=== PATIENT | female | born 1970 | race African-American/Black ===

== ENCOUNTER 2018-08-08 22:58 | Inpatient (IN) | payer MEDICAID | END 2018-08-12 14:50 | disposition home or self-care (01) | LOC: TELE-EAST 08-09 16:24 → ER 22:58 → TELE 08-09 04:53 → TELE-EAST 08-09 16:20 | DX: I16.1 Hypertensive emergency (principal); G93.41 Metabolic encephalopathy; I15.8 Other secondary hypertension; F41.1 Generalized anxiety disorder; E87.6 Hypokalemia; E66.9 Obesity, unspecified ==

== ENCOUNTER 2018-12-31 07:25 | Emergency (ER) | payer MEDICAID ==
[~2018-12-31] VITALS: Ht 172.7 cm; Wt 95.3 kg
[~2018-12-31 07:25] MED LIST: HCTZ25T PO; LOSA-49 PO
[2018-12-31] MEDS ORDERED: cloNIDine HCL 0.1 MG TAB ONE (07:39)
[2018-12-31] MEDS ORDERED: cloNIDine HCL 0.1 MG TAB PO ONE ×2 (07:45→16:00)
[2018-12-31 08:01] LABS: Basophils # (auto) 0.1 uL; Basophils % (auto) 0.4 % (0.0-2.0); Eosinophils # (auto) 0 uL; Eosinophils % (auto) 0.1 % (0.0-7.0); Hematocrit 45.8 % (36.0-46.0); Hemoglobin 15.2 g/dL (12.2-16.2); Lymphocytes # (auto) 1.1 uL; Lymphocytes % (auto) 7.8 % (10.0-50.0); Mean Corpuscular Hemoglobin 29.5 pg (28.0-32.0); Mean Corpuscular Hgb Conc. 33.1 g/dL (32.0-36.0); Mean Corpuscular Volume 89.2 fL (80.0-100.0); Monocytes # (auto) 1.2 uL; Monocytes % (auto) 8.5 % (0.0-12.0); Neutrophils # (auto) 11.3 uL; Neutrophils % (auto) 83.2 % (37.0-80.0); Platelet Count (auto) 303 10^3/uL (140-450); Red Blood Cells 5.13 10^6/uL (4.0-5.20); Red Cell Distribution Width 14.3 % (11.8-14.3); White Blood Cell 13.6 10^3/uL (4.4-10.8)
[2018-12-31 08:21] LABS: Albumin 4.1 g/dL (3.4-5.0); BUN/Creatinine Ratio 12.2; Calcium 9.3 mg/dL (8.5-10.1); Potassium 3.6 mmol/L (3.5-5.1)
[2018-12-31 08:26] LABS: Bilirubin, Total 0.4 mg/dL (0.2-1.0); Total Protein 8.6 g/dL (6.4-8.2)
[2018-12-31] MEDS ORDERED: LORazepam 2MG/ML-1ML VIAL ONE (10:01)
[2018-12-31] MEDS ORDERED: LORazepam 2MG/ML-1ML VIAL IV ONE ×2 (10:15→12:45)
[2018-12-31 11:08] LABS: Urine Bacteria NONE SEEN /hpf (None Seen); Urine Blood Negative /uL (Negative); Urine Specific Gravity 1.019 (1.001-1.035); Urine WBC 2 /hpf (0 - 5)
[2018-12-31 11:24] LABS: Alcohol, Urine < 3.0 mg/dL (0-5); Amphetamine Screen, Urine NEGATIVE (NEGATIVE); Barbiturate Scree,Urine NEGATIVE (NEGATIVE); Benzodiazephine Screen, Urine NEGATIVE (NEGATIVE); Cannabinoid Screen, Urine NEGATIVE (NEGATIVE); Cocaine Screen, Urine NEGATIVE (NEGATIVE); Opiate Scree,Urine NEGATIVE (NEGATIVE); Phencyclidine Screen, Urine NEGATIVE (NEGATIVE)
[2018-12-31] MEDS ORDERED: RISP1TAB60 PO (12:08)
[2018-12-31] MEDS ORDERED: METO25TA62 PO (12:08)
[2018-12-31] MEDS ORDERED: risperiDONE 1 MG TAB PO ONE (14:30)
[2018-12-31] MEDS ORDERED: LABETALOL HCL 5 MG/ML ML 20ML VIAL IV ONE (16:00)
[2018-12-31 18:36] VITALS: BP 150/95
== END 2018-12-31 19:28 | disposition home or self-care (01) ==
LOC: EDBD 07:25 → ER 07:42
DX: I16.0 Hypertensive urgency (principal); F20.9 Schizophrenia, unspecified; F41.9 Anxiety disorder, unspecified; F32.9 Major depressive disorder, single episode, unspecified
CPT/HCPCS: 36415; 70450; 71046; 80053; 80307; 81001; 81025; 84484; 84702; 85025; 93005; 96374; 96375; 96376; 99284; J2060

== ENCOUNTER 2021-03-29 10:50 | Emergency (ER) | payer MEDICAID ==
[~2021-03-29] VITALS: Ht 162.6 cm; Wt 86.2 kg
[~2021-03-29 10:50] MED LIST changes: -HCTZ25T PO; +HYDR25TA5 PO; +LOSA-39 PO; -LOSA-49 PO; +METO25TA93 PO; +RISP1TAB33 PO
[2021-03-29] MEDS ORDERED: cloNIDine HCL 0.1 MG TAB ONE (10:53)
[2021-03-29] MEDS ORDERED: cloNIDine HCL 0.1 MG TAB PO ONE (11:00)
[2021-03-29] MEDS ORDERED: InsuLIN REG 1unit/0.01ml Soln (100units/ml) IV ONE (11:45)
[2021-03-29] MEDS ORDERED: SODIUM CHLORIDE 0.9% 1,000 ML IV ONE ×2 (11:45)
[2021-03-29 11:46] LABS: Basophils # (auto) 0 10 ^3/uL (0-0.2); Basophils % (auto) 0.4 % (0.0-2.0); Eosinophils # (auto) 0 10 ^3/uL (0-0.8); Eosinophils % (auto) 0.5 % (0.0-7.0); Hematocrit 39.7 % (36.0-46.0); Hemoglobin 13.7 g/dL (12.2-16.2); Lymphocytes # (auto) 1.9 10 ^3/uL (0.4-5.4); Mean Corpuscular Hemoglobin 29.2 pg (28.0-32.0); Mean Corpuscular Hgb Conc. 34.6 g/dL (32.0-36.0); Mean Corpuscular Volume 84.4 fL (80.0-100.0); Monocytes # (auto) 0.7 10 ^3/uL (0-1.3); Monocytes % (auto) 7.3 % (0.0-12.0); Neutrophils # (auto) 7.3 10 ^3/uL (1.6-8.6); Neutrophils % (auto) 72.8 % (37.0-80.0); Red Cell Distribution Width 13.8 % (11.8-14.3)
[2021-03-29 11:56] LABS: Potassium 3.8 mmol/L (3.5-5.1)
[2021-03-29 12:06] LABS: BUN/Creatinine Ratio 13.3; Bilirubin, Total 0.4 mg/dL (0.2-1.0); Calcium 9.9 mg/dL (8.5-10.1); Total Protein 8.4 g/dL (6.4-8.2)
[2021-03-29 14:32] LABS: Urine Bacteria NONE SEEN /hpf (None Seen); Urine Blood TRACE /uL (Negative); Urine Specific Gravity 1.033 (1.001-1.035); Urine WBC 220 /hpf (0 - 5)
[2021-03-29] MEDS ORDERED: cefTRIAXone 1GM/50ML D5W 50 ML IV ONE (14:45)
[2021-03-29 16:15] VITALS: BP 155/94
== END 2021-03-29 17:28 | disposition left against medical advice (07) ==
LOC: ER 10:50
DX: I16.0 Hypertensive urgency (principal); N39.0 Urinary tract infection, site not specified; E11.65 Type 2 diabetes mellitus with hyperglycemia; Z79.899 Other long term (current) drug therapy
CPT/HCPCS: 36415; 71045; 80053; 81001; 82962; 83036; 85025; 96365; 96375; 99284; J0696; J1815; J7030

== ENCOUNTER 2022-11-10 14:23 | Emergency (ER) | payer MEDICAID ==
[~2022-11-10] VITALS: Ht 162.6 cm; Wt 72.8 kg
[2022-11-10] MEDS ORDERED: cloNIDine HCL 0.1 MG TAB PO ONE (14:45)
[2022-11-10] MEDS ORDERED: LOSARTAN POTASSIUM 50 MG TAB PO ONE (17:00)
[2022-11-10 18:49] VITALS: BP 195/102
== END 2022-11-10 18:54 | disposition home or self-care (01) ==
LOC: ER 14:23
DX: R04.0 Epistaxis (principal); I16.0 Hypertensive urgency; I10 Essential (primary) hypertension; E11.9 Type 2 diabetes mellitus without complications; F41.9 Anxiety disorder, unspecified

== ENCOUNTER 2022-11-11 10:25 | Emergency (ER) | payer MEDICAID ==
[~2022-11-11] VITALS: Ht 162.6 cm; Wt 79.0 kg
[2022-11-11 11:33] VITALS: BP 131/86
== END 2022-11-11 11:39 | disposition home or self-care (01) ==
LOC: ER 10:25
DX: Z48.00 Encounter for change or removal of nonsurgical wound dressing (principal)

== ENCOUNTER 2022-12-21 21:02 | Emergency (ER) | payer MEDICAID ==
[~2022-12-21] VITALS: Ht 162.6 cm; Wt 82.0 kg
[2022-12-22] MEDS ORDERED: [UNRECOGNIZED DRUG - CODE] OT (00:35)
[2022-12-22] MEDS ORDERED: AMOX-277 PO (00:35)
[2022-12-22 00:57] VITALS: BP 156/60
== END 2022-12-22 01:11 | disposition home or self-care (01) ==
LOC: ER 21:04
DX: H02.9 Unspecified disorder of eyelid (principal); H61.23 Impacted cerumen, bilateral; I10 Essential (primary) hypertension; E11.9 Type 2 diabetes mellitus without complications; Z79.2 Long term (current) use of antibiotics; Z79.899 Other long term (current) drug therapy

== ENCOUNTER 2022-12-26 16:04 | Emergency (ER) | payer MEDICAID ==
[~2022-12-26] VITALS: Ht 162.6 cm; Wt 82.1 kg
[~2022-12-26 16:04] MED LIST changes: +AMOX875T4 PO; +CARB6.5S59 OT; -LOSA-39 PO; +LOSA100T58 PO
[2022-12-26 18:31] LABS: Basophils % (auto) 0.4 % (0.0-2.0); Eosinophils # (auto) 0.1 10 ^3/uL (0-0.8); Mean Corpuscular Hemoglobin 26.8 pg (28.0-32.0); Mean Corpuscular Hgb Conc. 32.8 g/dL (32.0-36.0)
[2022-12-26 18:32] LABS: Basophils # (auto) 0 10 ^3/uL (0-0.2); Eosinophils % (auto) 0.8 % (0.0-7.0); Hematocrit 34.8 % (36.0-46.0); Hemoglobin 11.4 g/dL (12.2-16.2); Lymphocytes # (auto) 2.1 10 ^3/uL (0.4-5.4); Lymphocytes % (auto) 17.1 % (10.0-50.0); Mean Corpuscular Volume 81.7 fL (80.0-100.0); Monocytes # (auto) 0.8 10 ^3/uL (0-1.3); Monocytes % (auto) 6.7 % (0.0-12.0); Neutrophils # (auto) 9.1 10 ^3/uL (1.6-8.6); Red Blood Cells 4.26 10^6/uL (4.0-5.20); Red Cell Distribution Width 15.9 % (11.8-14.3); White Blood Cell 12.1 10^3/uL (4.4-10.8)
[2022-12-26 18:47] LABS: Calcium 8.8 mg/dL (8.5-10.1); Potassium 3.7 mmol/L (3.5-5.1)
[2022-12-26 18:50] LABS: BUN/Creatinine Ratio 15.9 (10.0-20.0); Bilirubin, Total 0.2 mg/dL (0.2-1.0); Total Protein 8.4 g/dL (6.4-8.2)
[2022-12-26] MEDS ORDERED: IOHEXOL 300 MG/ML 100ML BOTTLE IJ ONE (19:33)
[2022-12-26] MEDS ORDERED: DexAMETHasone SOD PHOS 10MG/1ML VIAL INJ IM ONE (20:45)
[2022-12-26] MEDS ORDERED: cefTRIAXone SOD 1,000 MG VL IM ONE (20:45)
[2022-12-26] MEDS ORDERED: ONDA-144 PO (20:57)
[2022-12-26] MEDS ORDERED: OFL50TS OT (20:57)
[2022-12-26] MEDS ORDERED: BENZLOZ2 MT (20:57)
[2022-12-26] MEDS ORDERED: CLIN300C70 PO (20:57)
[2022-12-26 21:17] VITALS: BP 157/86
== END 2022-12-26 21:26 | disposition home or self-care (01) ==
LOC: ER 16:04
DX: R53.1 Weakness (principal); J03.80 Acute tonsillitis due to other specified organisms; H66.92 Otitis media, unspecified, left ear; F41.9 Anxiety disorder, unspecified; E11.9 Type 2 diabetes mellitus without complications; I10 Essential (primary) hypertension; Z79.899 Other long term (current) drug therapy
CPT/HCPCS: 36415; 70490; 80053; 84484; 85025; 93005; 96372; 99285; J0696; Q9967